=== PATIENT | male | born 1990 | race Caucasian/White ===

== ENCOUNTER 2018-05-23 12:31 | Emergency (ER) | payer SELFPAY ==
[2018-05-23 12:39] VITALS: BP 159/85; PULSE 90; RESP 16; TEMP 99.1; O2SAT 100
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
== END 2018-05-23 13:53 | disposition home or self-care (01) ==
LOC: C.ER 12:31
DX: M62.830 Muscle spasm of back (principal)